=== PATIENT | female | born 1955 | race Caucasian/White ===

== ENCOUNTER → 2016-03-30 | Outpatient (CLI) | payer OTHER ==
[~2016-03-30] MED LIST: DILTIAZEM HCL180 MG PO; LORTAB 5/3251 TAB PO
--- NOTE | 2016-03-31 23:11 | RADIOLOGY REPORT PS360 ---
DIG MAMM-SCREEN [facility]ELLE W/CAD CAD Screening ORDERING PHYSICIAN : Victorino Reveles MD PATIENT AGE: 60 years GENDER: Female COMPARISON: Previous mammograms: Previous studies from February 2015, January 2014, 2012, & 2011 INDICATION: Routine screening 60-year-old. No hormones. No new complaints. Family history. Mother with breast cancer age 55 TECHNIQUE: Standard CC and MLO images were obtained. R2 CAD reviewed. FINDINGS: Moderate density breast. Scattered moderate plantar elements bilateral RIGHT BREAST: Mild asymmetry. No significant new findings LEFT BREAST: Small focal area of density at the left breast was present on multiple previous studies. No significant change . Other other very small minor areas nodularity bilaterally appear stable as well. IMPRESSION: IMPRESSION......... Stable mammogram Mild Asymmetric areas of density have remain stable, with no significant new areas concern . Follow-up in one year recommended BI-RADS CATEGORY: 2_Benign RECOMMENDED FOLLOWUP: 12M 12 MONTH FOLLOW-UP (A letter has been sent to the patient regarding results of the study.)
== END ==
LOC: RAD 10:27
DX: Z12.31 Encounter for screening mammogram for malignant neoplasm of breast (principal)
CPT/HCPCS: G0202

== ENCOUNTER → 2017-02-04 | Outpatient (CLI) | payer OTHER | LOC: LAB 12:49 | DX: J02.9 Acute pharyngitis, unspecified (principal) ==